=== PATIENT | female | born 1980 | race Caucasian/White ===

== ENCOUNTER 2021-12-03 13:11 | Emergency (ER) | payer BC ==
[2021-12-03 13:36] LABS: #Basophils 0.1 10x3/uL (0.0-0.2); #Eosinphils 0.3 10x3/uL (0.0-0.5); #Monocytes 0.7 10x3/uL (0.0-1.1); #Neutrophils 7.3 10x3/uL (1.5-8.4); %Basophils 0.8 % (0.0-2.0); %Eosinophils 2.5 % (0.0-6.0); %Lymphocytes 28.8 % (18.0-47.0); %Monocytes 5.7 % (0.0-10.0); %Neutrophils 61.9 % (40.0-75.0); Hemoglobin 11.9 g/dL (12.0-15.5); Mean Corpuscular HGB CONC 32.6 g/dL (32.0-36.0); Mean Corpuscular Hemoglobin 25.7 pg (27.0-33.0); Mean Corpuscular Volume 78.8 fl (81.6-98.3); Mean Platelet Volume 11.6 fl (7.4-10.4); Platelet Count 399 10x3/uL (150-450); RBC Distribution Width 17.7 % (11.5-14.5); Red Blood Cell (RBC) Count 4.63 10x6/uL (3.90-5.03); White Blood Cell (WBC) Count 11.8 10x3/uL (3.5-10.5)
[2021-12-03 13:51] LABS: ALT (SGPT) 19 U/L (8-55); AST (SGOT) 22 U/L (5-34); Alkaline Phosphatase 109 U/L (40-110); Anion Gap 15 mmol/L (10-20); BUN (Urea Nitrogen) 11 mg/dL (7.0-18.7); Bilirubin, Total 0.2 mg/dL (0.2-1.2); Calc. Creatinine Clearance 0 mL/min (70-130); Calcium 9.3 mg/dL (7.8-10.44); Carbon Dioxide 24 mmol/L (22-29); Chloride 107 mmol/L (98-107); Estimated GFR 106; Globulin 2.9 g/dL (2.4-3.5); Glucose 146 mg/dL (70-105); Lipase 47 U/L (8-78); Potassium 4.6 mmol/L (3.5-5.1); Protein, Total 6.9 g/dL (6.0-8.3); Sodium 141 mmol/L (136-145)
[2021-12-03] MEDS ORDERED: Iopamidol 370 76% 100 ML VIAL ONE (15:06)
[2021-12-03] MEDS ORDERED: Famotidine/PF 20 mg/2ml Vial ONE (16:14)
[2021-12-03] MEDS ORDERED: methylPREDNISolone Sod Succ/PF 125 MG/2 ML VIAL ONE (16:14)
[2021-12-03] MEDS ORDERED: diphenhydrAMINE 50 MG/ML VIAL ONE (16:14)
== END 2021-12-03 18:39 | disposition home or self-care (01) ==
LOC: CSHERS 13:11
DX: R07.89 Other chest pain (principal); G47.33 Obstructive sleep apnea (adult) (pediatric)
CPT/HCPCS: 71045; 71275; 80053; 83690; 83880; 84484; 85025; 85379; 93005; 94760; 96374; 96375; J1200; J2930; Q9967; S0028

== ENCOUNTER 2022-08-08 15:00 | Emergency (ER) | payer BC ==
[2022-08-08] MEDS ORDERED: Lorazepam 2 MG/ML VIAL ONE (16:01)
[2022-08-08] MEDS ORDERED: Fentanyl 100 MCG/2 ML VIAL ONE (16:02)
[2022-08-08] MEDS ORDERED: Bupivacaine PF 0.5% 30 ML VIAL ONE (16:04)
== END 2022-08-08 16:42 | disposition home or self-care (01) ==
LOC: CSHERS 15:00
DX: L05.91 Pilonidal cyst without abscess (principal)
CPT/HCPCS: 10080; 96374; 96375; J2060; J3010; S0020

== ENCOUNTER 2022-12-09 17:21 | Emergency (ER) | payer BC ==
[2022-12-09 18:23] LABS: #Basophils 0.1 10x3/uL (0.0-0.2); #Eosinphils 0.2 10x3/uL (0.0-0.5); #Monocytes 0.8 10x3/uL (0.0-1.1); #Neutrophils 6.5 10x3/uL (1.5-8.4); %Basophils 0.8 % (0.0-2.0); %Eosinophils 1.7 % (0.0-6.0); %Lymphocytes 38.4 % (18.0-47.0); %Monocytes 6.2 % (0.0-10.0); %Neutrophils 52.7 % (40.0-75.0); Hematocrit 42.1 % (34.9-44.5); Hemoglobin 14.1 g/dL (12.0-15.5); Mean Corpuscular HGB CONC 33.5 g/dL (32.0-36.0); Mean Corpuscular Hemoglobin 29.3 pg (27.0-33.0); Mean Corpuscular Volume 87.5 fl (81.6-98.3); Mean Platelet Volume 11.5 fl (7.4-10.4); Platelet Count 328 10x3/uL (150-450); RBC Distribution Width 14.2 % (11.5-14.5); Red Blood Cell (RBC) Count 4.81 10x6/uL (3.90-5.03); White Blood Cell (WBC) Count 12.3 10x3/uL (3.5-10.5)
[2022-12-09 18:28] LABS: ALT (SGPT) 23 U/L (8-55); AST (SGOT) 15 U/L (5-34); Albumin 4.1 g/dL (3.5-5.0); Alkaline Phosphatase 103 U/L (40-110); Anion Gap 16 mmol/L (10-20); BUN (Urea Nitrogen) 18 mg/dL (7.0-18.7); Bilirubin, Total 0.2 mg/dL (0.2-1.2); Calc. Creatinine Clearance 0 mL/min (70-130); Carbon Dioxide 23 mmol/L (22-29); Chloride 107 mmol/L (98-107); Estimated GFR 92; Globulin 2.4 g/dL (2.4-3.5); Glucose 116 mg/dL (70-105); Potassium 4.1 mmol/L (3.5-5.1); Protein, Total 6.5 g/dL (6.0-8.3); Sodium 142 mmol/L (136-145)
[2022-12-09 18:31] LABS: Troponin I Less than 0.010 ng/mL (< 0.028)
[2022-12-09] MEDS ORDERED: Aspirin 325 MG TAB ONE (19:42)
[2022-12-09] MEDS ORDERED: clonazePAM 0.5 MG TAB ONE (19:42)
[2022-12-09 21:21] LABS: Troponin I Less than 0.010 ng/mL (< 0.028)
== END 2022-12-09 21:39 | disposition home or self-care (01) ==
LOC: CSHERS 17:21
DX: R07.89 Other chest pain (principal)
CPT/HCPCS: 36415; 71045; 80053; 83880; 84484; 85025; 93005

== ENCOUNTER 2023-05-11 20:54 | Emergency (ER) | payer BC ==
[2023-05-11] MEDS ORDERED: Metoclopramide 10 MG/10 ML UDCUP ONE (21:50)
[2023-05-11] MEDS ORDERED: Ketorolac Tromethamine 30 MG (1 mL) VIAL ONE (21:50)
[2023-05-11] MEDS ORDERED: diphenhydrAMINE 25 MG CAP ONE (21:50)
== END 2023-05-11 22:10 | disposition home or self-care (01) ==
LOC: CSHERS 20:54
DX: G43.909 Migraine, unspecified, not intractable, without status migrainosus (principal); F41.9 Anxiety disorder, unspecified
CPT/HCPCS: 71045; 93005; 96372; J1885

== ENCOUNTER 2023-09-14 15:42 | Emergency (ER) | payer BC | END 2023-09-14 18:25 | disposition home or self-care (01) | LOC: CSHERS 15:42 | DX: R42 Dizziness and giddiness (principal); R10.13 Epigastric pain | CPT/HCPCS: 93005 ==

== ENCOUNTER 2023-09-15 17:16 | Emergency (ER) | payer BC ==
[2023-09-15] MEDS ORDERED: diphenhydrAMINE 50 MG/ML VIAL ONE (18:23)
[2023-09-15] MEDS ORDERED: Famotidine/PF 20 mg/2ml Vial ONE (18:23)
[2023-09-15] MEDS ORDERED: methylPREDNISolone Sod Succ 40 MG VIAL ONE (18:23)
[2023-09-15] MEDS ORDERED: Metoclopramide HCl 10 MG (2 mL) VIAL ONE (18:23)
[2023-09-15 18:43] LABS: #Basophils 0.11 10x3/uL (0.0-0.2); #Eosinphils 0.22 10x3/uL (0.0-0.5); #Monocytes 0.82 10x3/uL (0.0-1.1); #Neutrophils 5.31 10x3/uL (1.5-8.4); %Basophils 0.9 % (0.0-2.0); %Eosinophils 1.8 % (0.0-6.0); %Lymphocytes 47.4 % (18.0-47.0); %Monocytes 6.7 % (0.0-10.0); Hematocrit 42.2 % (34.9-44.5); Hemoglobin 14.8 g/dL (12.0-15.5); Mean Corpuscular HGB CONC 35.1 g/dL (32.0-36.0); Mean Corpuscular Hemoglobin 31.5 pg (27.0-33.0); Mean Corpuscular Volume 89.8 fl (81.6-98.3); Platelet Count 271 10x3/uL (150-450); RBC Distribution Width 13.2 % (11.5-14.5); White Blood Cell (WBC) Count 12.3 10x3/uL (3.5-10.5)
[2023-09-15 18:49] LABS: BHCG - Serum Negative (NEGATIVE); Pregs Control Background? CLEAR/WHITE (CLR/WHITE); Pregs Control Bar Appear? YES (CONTROL BAR)
[2023-09-15 18:55] LABS: ALT (SGPT) 22 U/L (8-55); AST (SGOT) 22 U/L (5-34); Albumin 3.5 g/dL (3.5-5.0); Alkaline Phosphatase 91 U/L (40-110); Anion Gap 15 mmol/L (10-20); BUN (Urea Nitrogen) 9 mg/dL (7.0-18.7); Bilirubin, Total 0.3 mg/dL (0.2-1.2); Calc. Creatinine Clearance 0 mL/min (70-130); Carbon Dioxide 27 mmol/L (22-29); Chloride 104 mmol/L (98-107); Estimated GFR 86; Globulin 3.2 g/dL (2.4-3.5); Glucose 77 mg/dL (70-105); Lipase 26 U/L (8-78); Potassium 3.9 mmol/L (3.5-5.1); Protein, Total 6.7 g/dL (6.0-8.3); Sodium 142 mmol/L (136-145)
[2023-09-15 20:16] LABS: Bilirubin Neg (Negative); Blood, Urine Negative (Negative); Clarity Clear (Clear); Glucose, Urine (Dipstick) Normal (Negative); Ketone, Urine Negative (Negative); Leukocyte 25 (Negative); Nitrite Negative (Negative); Protein, Urine (Dipstick) Negative (Neg-Trace); Urobilinogen Normal mg/dL (Less than 2)
[2023-09-15 20:26] LABS: Bacteria/HPF 2+ HPF (None Seen); CAUTI Indications for Culture Pelvic or flank pain; RBC/HPF None Seen HPF (0-3); Urine Culture Reflex No No; WBC/HPF 0-3 HPF (0-3)
[2023-09-15] MEDS ORDERED: Morphine 4 MG/ML VIAL ONE (20:56)
== END 2023-09-15 22:06 | disposition home or self-care (01) ==
LOC: CSHERS 17:16
DX: K52.9 Noninfective gastroenteritis and colitis, unspecified (principal)
CPT/HCPCS: 36415; 74177; 80053; 81001; 83605; 83690; 84703; 85025; 96374; 96375; J1200; J2270; J2765; J2920; S0028

== ENCOUNTER 2023-12-20 18:49 | Emergency (ER) | payer BC ==
[2023-12-20] MEDS ORDERED: HYDROcodone/Acetaminophen 5/325 mg Tablet ONE (20:42)
[2023-12-20] MEDS ORDERED: Lidocaine 4% Patch ONE (21:49)
[2023-12-20] MEDS ORDERED: Ketorolac Tromethamine 30 MG (1 mL) VIAL ONE (22:20)
[2023-12-20] MEDS ORDERED: Cyclobenzaprine 10 MG TAB ONE (22:20)
== END 2023-12-20 23:28 | disposition home or self-care (01) ==
LOC: CSHERS 18:49
DX: S16.1XXA Strain of muscle, fascia and tendon at neck level, initial encounter (principal); S39.012A Strain of muscle, fascia and tendon of lower back, initial encounter; S29.012A Strain of muscle and tendon of back wall of thorax, initial encounter; S40.022A Contusion of left upper arm, initial encounter; M79.10 Myalgia, unspecified site; W07.XXXA Fall from chair, initial encounter; Y93.89 Activity, other specified
CPT/HCPCS: 72125; 72128; 72131; 96372; J1885

== ENCOUNTER 2024-12-03 20:08 | Emergency (ER) | payer BC ==
[2024-12-03] MEDS ORDERED: predniSONE 20 MG TAB ONE (23:18)
[2024-12-03] MEDS ORDERED: Ketorolac Tromethamine 30 MG (1 mL) VIAL ONE (23:18)
== END 2024-12-03 23:31 | disposition home or self-care (01) ==
LOC: CSHERS 20:08
DX: L40.50 Arthropathic psoriasis, unspecified (principal)
CPT/HCPCS: 96372; 99283; J1885; J7512